=== PATIENT | female | born 1980 | race Hispanic/Latino ===

== ENCOUNTER → 2018-06-09 | Day surgery (SDC) | payer OTHER ==
[~2018-06-09] MED LIST: FENTANYL CITRATE/PF 100MCG/2 ML INJ ONE; LIDOCAINE HCL 2% LOCAL INJ 5 ML SDV VIAL INJ ONE; MIDAZOLAM HCL 2 MG/2 ML VIAL ONE; MULTI-VITAMIN1 EACH; PROPOFOL IV EMULSION 10 MG/ML 50 ML VIAL ONE; SUPER ENZYMES; TUMS200 MG
--- OUTSIDE RECORDS SUMMARY | 2018-06-09 14:32 | XMS REPORT | Continuity of Care Document ---
Author Author [facility] Interface Address Unknown Phone Unavailable Problems Problem Status Onset Date Classification Date Reported Comments Source Dysuria 07/12/2016 Diagnosis 07/12/2016 [facility] 535.00 - ACUTE GASTRITIS Active 10/23/2012 [facility] [place] Acute Sinusitis Problem 07/12/2016 [facility] Fatigue Problem 07/12/2016 [facility] Medications Medication Details Route Status Patient Instructions Ordering Provider Order Date Source Fluticasone propionate 0.05 MG/ACTUAT Metered Dose Nasal [place] fluticasone 50 mcg/actuation nasal spray,suspension Active [facility] influenza A virus A/[facility] (H1N1) antigen 0.03 MG/ML / influenza A virus A/ (H3N2) antigen 0.03 MG/ML / influenza B virus B/[place] antigen 0.03 MG/ML Injectable Suspension [Fluvirin ] Fluvirin 9018-0782 45 mcg (15 mcg x 3)/0.5 mL intramuscular suspension ADM 0.5ML IM UTD Active [facility] gabapentin 100 MG Oral Capsule gabapentin 100 mg capsule Active [facility] levocetirizine dihydrochloride 5 MG Oral Tablet levocetirizine 5 mg tablet Active [facility] NITROFURANTOIN, MACROCRYSTALS 25 MG / Nitrofurantoin, Monohydrate 75 MG Oral Capsule [Macrobid] Macrobid 100 mg capsule Take 1 capsule every 12 hours by oral route for 5 days. Active [facility] Meclizine Hydrochloride 25 MG Oral Tablet meclizine 25 mg tablet Active [facility] Metoclopramide 5 MG Oral Tablet metoclopramide 5 mg tablet Active [facility] Metronidazole 500 MG Oral Tablet metronidazole 500 mg tablet Active [facility] Sulfamethoxazole 800 MG / Trimethoprim 160 MG Oral Tablet sulfamethoxazole 800 mg-trimethoprim 160 mg tablet Active [facility] Suprep Bowel Prep Kit 17.5 gram-3.13 gram-1.6 gram oral solution Suprep Bowel Prep Kit 17.5 gram-3.13 gram-1.6 gram oral solution Active [facility] Ergocalciferol 75522 UNT Oral Capsule Vitamin D2 50,000 unit capsule Active [facility] Allergies, Adverse Reactions, Alerts Substance Category Reaction Severity Reaction type Status Date Reported Comments Source Immunizations Immunization Date Given Site Status Last Updated Comments Source Results Order Name Results Value Reference Range Date Interpretation Comments Source Urinalysis macro (dipstick) panel - Urine COLOR : Yellow 07/12/2016 [facility] Urinalysis macro (dipstick) panel - Urine CLARITY : Clear 07/12/2016 [facility] Urinalysis macro (dipstick) panel - Urine LEUKOCYTES : Trace 07/12/2016 [facility] Urinalysis macro (dipstick) panel - Urine NITRITES : Negative 07/12/2016 [facility] Urinalysis macro (dipstick) panel - Urine UROBILINOGEN : Normal 07/12/2016 [facility] Urinalysis macro (dipstick) panel - Urine PROTEIN : Trace 07/12/2016 [facility] Urinalysis macro (dipstick) panel - Urine pH : 6.0 07/12/2016 [facility] Urinalysis macro (dipstick) panel - Urine BLOOD : Small 07/12/2016 [facility] Urinalysis macro (dipstick) panel - Urine SPECIFIC GRAVITY : 1.000 07/12/2016 [facility] Urinalysis macro (dipstick) panel - Urine KETONES : Negative 07/12/2016 [facility] Urinalysis macro (dipstick) panel - Urine BILIRUBIN : Negative 07/12/2016 [facility] Urinalysis macro (dipstick) panel - Urine GLUCOSE Negative 07/12/2016 [facility] Stomach UGI (barium) Stomach UGI (barium) UPPER GI EXAM CLINICAL HISTORY: Gastritis. TECHNIQUE: Double contrast exam with barium and air. FLUOROSCOPY TIME: 58 seconds. FINDINGS: Precontrast KUB demonstrates no significant abnormality. Contrast images of the upper GI tract show no esophageal mucosal abnormality, hiatal hernia, or gastroesophageal reflux. The stomach is normal in configuration, contraction, and rugal pattern without evidence of peptic ulcer disease. Opacified small bowel is unremarkable. IMPRESSION: No significant abnormality. 10/24/2012 - - Read by: Sienna Chaudhari Dictated Date/time: 10/24/12 14:58 Electronically Signed by: Sienna Chaudhari DO 10/24/12 15:09 FINAL REPORT [facility] [place] Vital Signs Vital Sign Value Date Comments Source Diastolic (mm Hg) 78 07/12/2016 [facility] Height 56 07/12/2016 [facility] Systolic (mm Hg) 120 07/12/2016 [facility] Weight 130 07/12/2016 [facility] Encounters Location Location Details Encounter Type Encounter Number Reason For Visit Attending Provider ADM Date DC Date Status Source OD [id number] 535.00 - ACUTE GASTRITIS BRITTANEY LEMOS 10/24/2012 Active [facility] - [facility] - [id number] Cory Alan, SENIOR GROUP MANAGER-C: [address] [facility], [place] [address], Ph. [id number] Cory Alan 07/12/2016 [facility] Procedures Procedure Code Date Perfomer Comments Source
--- OUTSIDE RECORDS SUMMARY | 2018-06-09 14:32 | XMS REPORT | Encounter Summary ---
Author Organization Unknown Address [address] [place] [address] Phone [phone] Reason for Visit Medical Complaint Instructions 1. Dysuria Macrobid 100 mg capsule urinalysis, dipstick culture, urine Discussion Note: None recorded. Patient educational handouts: No information available. Plan of Care Patient Instructions take antibiotics as prescribed. increase fluids. otc tylenol or ibuprofen prn for pain. will contact patient when results of culture are finalized. follow up pcp Reminders Provider Appointments None recorded. Lab Urinalysis, Dipstick 07/12/2016 [facility] Culture, Urine 07/12/2016 [facility] Referral None recorded. Procedures None recorded. Surgeries None recorded. Imaging None recorded. Medications Name Start Date fluticasone 50 mcg/actuation nasal spray,suspension Fluvirin [id number] 45 mcg (15 mcg x 3)/0.5 mL intramuscular suspension ADM 0.5ML IM UTD gabapentin 100 mg capsule levocetirizine 5 mg tablet Macrobid 100 mg capsule Take 1 capsule every 12 hours by oral route for 5 days. meclizine 25 mg tablet metoclopramide 5 mg tablet metronidazole 500 mg tablet sulfamethoxazole 800 mg-trimethoprim 160 mg tablet Suprep Bowel Prep Kit 17.5 gram-3.13 gram-1.6 gram oral solution Vitamin D2 50,000 unit capsule Medications Administered None recorded. Vitals Height Weight BMI Blood Pressure 4 ft 8 in 130 lbs 29.1 120/78 Lab Results Date Name Specimen Result Interpretation Description Value Range Status Address Urinalysis, Dipstick Color : Yellow [facility]: [address] [place] [address] Clarity : Clear [facility]: [address] [place] [address] Leukocytes : Trace [facility]: [address] [place] [address] Nitrites : Negative [facility]: [address] [place] [address] Urobilinogen : Normal [facility]: [address] [place] [address] Protein : Trace [facility]: [address] [place] [address] Ph : 6.0 [facility]: [facility] Blood : Small [facility]: [facility] Specific [place] : 1.000 [facility]: [facility] Ketones : Negative [facility]: [facility] Bilirubin : Negative [facility]: [facility] Glucose Negative [facility]: [facility] Allergies Code Code System Name Reaction Severity Onset NKDA Problems Name Status Onset Date Source Acute Sinusitis Active Encounter Fatigue Active Encounter Procedures None recorded. Vaccine List None recorded. Social History Smoking Status Never Smoker Past Encounters 07/12/2016 Dysuria Cory Alan, PLATEMAN-C: [address] [place] [address], Ph. History of Present Illness [id number] Reported By: Patient HPI: Location: urethra. Quality: pain, pressure. Severity: same. Duration: constant. Onset/Timing: gradual. Context: wipes anterior to posterior, voids after intercourse. Modifying factors nothing makes it worse. Associated Symptoms: no fever/chills, no flank pain, no jaundice, no blood in the urine, no vaginal discharge, no blisters on genitals, no rash on genitals, no muscle aches, no headache, pain during urination, urgency Review of Systems:ROS as noted in the HPI Review of Systems Basic Reported By: Patient Physical Exam Adult Basic, Adult Female Complete Reported By: Patient Constitutional: General Appearance: healthy-appearing, well-nourished, well-developed. Level of Distress: NAD. Ambulation: ambulating normally Psychiatric: Mental Status: active and alert Lungs: Respiratory effort: no dyspnea, no tachypnea, no use of accessory muscles, no intercostal retractions. Auscultation: breath sounds normal Cardiovascular: Heart Auscultation: RRR, no murmurs Abdomen: Inspection and Palpation: soft, non-distended, no tenderness, no guarding, no rebound tenderness, no masses, no CVA tenderness
[2018-06-09 17:45] VITALS: BP 111/76
--- NOTE | 2018-06-10 00:40 | Operative Report ---
DATE OF PROCEDURE: 06/09/2018 SURGEON: Rc Llamas MD PROCEDURE: EGD. INDICATIONS FOR EGD: Epigastric pain, heartburn, indigestion. MEDICATIONS: The patient was done under MAC, please see anesthesiologist's note. PROCEDURE IN DETAIL: With the patient in left lateral decubitus position, a flexible fiberoptic Olympus gastroscope was introduced into the esophagus under direct visualization without any difficulty. There were some patchy erythema noted in distal esophagus. The scope was then advanced with ease into the stomach. Mucosa overlying the antrum and the body revealed some patchy erythema and [id number] edema, and biopsies were obtained and sent to stain for H pylori. The pylorus was intubated with ease and the scope was advanced all the way to the second portion of the duodenum. Biopsies were obtained from the proximal second portion and the duodenal bulb to rule out sprue. The scope was then withdrawn back into the stomach and retroflexed. Mucosa overlying the fundus and the cardia appeared to be within normal limits. The scope was then straightened out. The stomach was decompressed. Scope was subsequently withdrawn. The patient tolerated the procedure well. IMPRESSION: 1. Distal esophagitis, mild. 2. Gastritis, biopsied. Biopsies sent to stain for Helicobacter pylori. 3. Rule out sprue. PLAN: Follow up histology. Initiate Protonix 40 mg 1 p.o. q.a.m. before meals. Rc Llamas MD [facility]/[place] /[id number]
== END | disposition home or self-care (01) ==
LOC: OR 14:30
PROVIDERS: ATTEND Internal Medicine Gastroenterology
DX: K29.70 Gastritis, unspecified, without bleeding (principal); K20.9 Esophagitis, unspecified; K58.1 Irritable bowel syndrome with constipation
CPT/HCPCS: 43239; 81025; J2001; J2250; J2704